=== PATIENT | female | born 1955 | race Caucasian/White ===

== ENCOUNTER 2022-10-10 09:07 | Day surgery (SDC) | payer OTHER, BC ==
[2022-10-10] MEDS ORDERED: Ringers Lactate 1,000 ML IV ONE (09:27)
[2022-10-10] MEDS ORDERED: LIDOCAINE 1% MPF 5 ML VIAL ONE (10:38)
[2022-10-10] MEDS ORDERED: propofoL 200 MG/20 ML VIAL IV ONE (10:38)
[2022-10-10 12:05] VITALS: O2SAT 100
[2022-10-10 12:24] VITALS: BP 149/80; TEMP 98
== END 2022-10-10 12:22 | disposition home or self-care (01) ==
LOC: OR 09:07
PROVIDERS: ATTEND Surgery
PROC: 0DBL8ZX Excision of Transverse Colon, Via Natural or Artificial Opening Endoscopic, Diagnostic (ICD-10-PCS; principal; 2022-10-10 11:00)
DX: Z12.11 Encounter for screening for malignant neoplasm of colon (principal); D12.3 Benign neoplasm of transverse colon; K64.8 Other hemorrhoids; I10 Essential (primary) hypertension; E78.00 Pure hypercholesterolemia, unspecified; E03.9 Hypothyroidism, unspecified; F41.9 Anxiety disorder, unspecified; F31.9 Bipolar disorder, unspecified; Z79.82 Long term (current) use of aspirin; Z79.899 Other long term (current) drug therapy; Z82.49 Family history of ischemic heart disease and other diseases of the circulatory system
CPT/HCPCS: 88305; 45385; J2704; J2001; J7120